=== PATIENT | female | born 1945 | race Caucasian/White ===

== ENCOUNTER 2020-10-18 07:22 | Day surgery (SDC) | payer MEDICARE, BC ==
[~2020-10-18] VITALS: Ht 154.9 cm; Wt 103.2 kg
[2020-10-18 07:44] VITALS: BP 164/99
[2020-10-18] MEDS ORDERED: ZAFI20TA14 PO (08:01)
[2020-10-18] MEDS ORDERED: ATOR20TA66 PO (08:02)
[2020-10-18] MEDS ORDERED: MIDAZolam 1 MG/ML 5ML VIAL ONE ×2 (08:03→08:32)
[2020-10-18] MEDS ORDERED: PREG200C PO (08:03)
[2020-10-18] MEDS ORDERED: fentaNYL/PF 50MCG/1 ML 2ML syringe ONE ×2 (08:03→08:32)
[2020-10-18] MEDS ORDERED: OLME5TAB3 PO (08:04)
[2020-10-18] MEDS ORDERED: OXYB10TA30 PO (08:05)
[2020-10-18] MEDS ORDERED: MONT10TA32 PO (08:05)
[2020-10-18] MEDS ORDERED: CITA20TA26 PO (08:06)
[2020-10-18] MEDS ORDERED: ALEN70TA81 PO (08:07)
[2020-10-18] MEDS ORDERED: CELE-85 PO (08:08)
[2020-10-18] MEDS ORDERED: ESOM20CA38 (08:08)
[2020-10-18] MEDS ORDERED: OMEG-86 (08:09)
[2020-10-18 09:10] VITALS: BP 147/77
[2020-10-18 09:20] VITALS: BP 151/77
[2020-10-18 09:30] VITALS: BP 154/68
[2020-10-18 09:40] VITALS: BP 156/77
== END 2020-10-18 09:50 | disposition home or self-care (01) ==
LOC: GI LAB 07:22
PROVIDERS: ATTEND Internal Medicine Gastroenterology
DX: R10.30 Lower abdominal pain, unspecified (principal); K57.30 Diverticulosis of large intestine without perforation or abscess without bleeding; I10 Essential (primary) hypertension; M19.90 Unspecified osteoarthritis, unspecified site; Z86.010 Personal history of colon polyps; Z88.1 Allergy status to other antibiotic agents; Z91.09 Other allergy status, other than to drugs and biological substances; Z79.899 Other long term (current) drug therapy
CPT/HCPCS: 45378; 99153; G0500; J2250; J3010; J7040; 99152; A4620

== ENCOUNTER 2023-04-05 05:35 | Inpatient (IN) | payer MEDICARE, BC ==
[2023-03-27 16:49] LABS: BASOPHILS # (AUTO) 0.1 X10'3 (0-0.2); BASOPHILS % (AUTO) 1.1 % (0-1); EOSINOPHILS # (AUTO) 0.2 X10'3 (0-0.9); EOSINOPHILS % (AUTO) 2.1 % (0-6); LYMPHOCYTES # (AUTO) 1.9 X10'3 (1.1-4.8); LYMPHOCYTES % (AUTO) 26.1 % (21-51); MEAN CORPUSCULAR HEMOGLOBIN 27.6 PG (27.0-31.0); MEAN CORPUSCULAR HGB CONC 32.3 g/dL (33.0-36.5); MEAN CORPUSCULAR VOLUME 85.6 FL (78-98); MEAN PLATELET VOLUME 9.6 FL (7.4-10.4); MONOCYTES # (AUTO) 0.7 X10'3 (0-0.9); MONOCYTES % (AUTO) 9.4 % (2-12); NEUTROPHILS # (AUTO) 4.5 X10'3 (1.8-7.7); NEUTROPHILS % (AUTO) 61.3 % (42-75); PRE OP HEMATOCRIT 37.6 % (35.0-45.0); PRE OP HEMOGLOBIN 12.1 g/dL (12.0-16.0); PRE OP PLATELET COUNT 169 X10'3 (140-440); PRE OP WHITE BLOOD COUNT 7.3 10'3 (4.8-10.8); RED BLOOD COUNT 4.39 X10'6 (4.20-5.60); RED CELL DISTRIBUTION WIDTH 16.2 % (11.5-14.5)
[2023-03-27 16:59] LABS: ALBUMIN 3.6 G/DL (3.4-5.0); ALBUMIN/GLOBULIN RATIO 0.9 (1.1-1.5); ALKALINE PHOSPHATASE 81 IU/L (46-116); BLOOD UREA NITROGEN 27 MG/DL (7-18); CALCIUM 9.1 MG/DL (8.5-10.1); CHLORIDE 104 MMOL/L (99-107); PRE OP ALT 20 U/L (30-65); PRE OP ANION GAP 5 (8-16); PRE OP AST 16 U/L (10-37); PRE OP BILIRUB, TOTAL 0.4 MG/DL (0.0-1.0); PRE OP GLUCOSE 80 MG/DL (70-104); PRE OP POTASSIUM 3.4 MMOL/L (3.4-5.1); PRE OP SODIUM 139 MMOL/L (135-145); TOTAL CARBON DIOXIDE 29.8 MMOL/L (24-32); TOTAL PROTEIN 7.4 G/DL (6.4-8.2); eGFR 61 ML/MIN
[2023-03-27 16:59] LABS: BILIRUBIN,URINE NEGATIVE (Neg); CLARITY,URINE CLEAR (Clear); COLOR,URINE YELLOW (Yellow); GLUCOSE, URINE NEGATIVE (Neg); KETONES,URINE NEGATIVE (Neg); LEUKOCYTE ESTERASE ,URINE NEGATIVE (Neg); NITRITES, URINE POSITIVE (Neg); OCCULT BLOOD,URINE NEGATIVE (Neg); PROTEIN,URINE NEGATIVE (Neg); UROBILINOGEN,URINE 0.2 E.U/dL (0.2-1.0)
[2023-03-27 17:09] LABS: UA COLLECTION TYPE CLN CATCH MIDSTREAM
[2023-03-27 17:13] LABS: SQUAMOUS EPITHELIAL CELL,UR FEW /LPF (FEW)
[2023-03-27 17:14] LABS: BACTERIA,URINE 1+ /HPF (Neg); WBC,URINE 0-4 /HPF (0-4)
[2023-03-27 17:15] LABS: RBC,URINE 0-2 /HPF (0-2)
[2023-03-27 17:24] LABS: HYALINE CASTS 0-3 /LPF (NEGATIVE); MUCUS STRANDS FEW /LPF (Neg)
[~2023-04-05] VITALS: Ht 154.9 cm; Wt 118.7 kg
[2023-04-05] VITALS (25 sets, daily range): BP systolic 122–148; BP diastolic 59–83; PULSE 58–89; RESP 13–18; TEMP 97.4–97.9; O2SAT 92–100
[~2023-04-05 05:35] MED LIST: ALBU0.63 NEB; APIX5TAB3 PO; ASCO-134 PO; ATOR20TA66 PO; BIOT5000 PO; BUDE10.2 INH; CELE-127 PO; CETI-90 PO; CHOL500050 PO; CITA20TA26 PO; ESOM20CA38 PO; FLUT16SP2 BOTHNARES; FURO20TA4 PO; KETOCONAZOLE CREAM TOP; MONT-40 PO; OLME5TAB29 PO; OMEG-133 PO; OXYB10TA30 PO; POTA-206 PO; PREG200C PO; PREG225C PO; PREVAGEN PO; SEMA0.258 SQ; VITA400T10 PO; ZAFI20TA PO; [UNRECOGNIZED DRUG - OTHER] PO; [UNRECOGNIZED DRUG - OTHER] PO; cefazolin 2gm/D5W 100mL 100 ML IV ONE; famotidine 20mg tablet PO ONE
[2023-04-05] MEDS ORDERED: BUPIVAcaine/PF 2.5mg/ml (0.25%) 10ml vial ONE ×2 (06:34→12:01)
[2023-04-05] MEDS ORDERED: bacitracin 15gm ointment TP ONE (06:34)
[2023-04-05] MEDS: ringers solution, lacted 1,000 ML IV SCH ×2 (06:53→15:10)
[2023-04-05] MEDS: vancomycin/NS 1 GM ADD-VANTAGE 250 ML IV SCH ×2 (06:54→21:02)
[2023-04-05] MEDS ORDERED: cloNIDine hcl/PF 100mcg/ml inj ONE (07:16)
[2023-04-05] MEDS ORDERED: fentaNYL/PF 50MCG/1 ML 2ML syringe ONE ×2 (07:22→10:28)
[2023-04-05] MEDS ORDERED: midazolam 1 mg/ML 2ml injection ONE (07:22)
[2023-04-05] MEDS ORDERED: glycopyrrolate 0.2mg/ml inj ONE (07:30)
[2023-04-05] MEDS ORDERED: neostigmine methylsulfate 1 MG/ML 10ml vial ONE (07:30)
[2023-04-05] MEDS ORDERED: sevoflurane 250ml liquid IH ONE (07:30)
[2023-04-05] MEDS ORDERED: ketamine 50mg/5ml syringe ONE (08:36)
[2023-04-05] MEDS ORDERED: morphine 4 MG/ML inj SYRINge IV PRN (09:20)
[2023-04-05] MEDS ORDERED: ringers solution, lacted 1,000 ML IV SCH (09:20)
[2023-04-05] MEDS ORDERED: HYDROmorphone/PF 0.2 MG/ML SYRINGE IV PRN ×3 (09:20→10:50)
[2023-04-05] MEDS ORDERED: morphine 2 MG/ML inj. syringe IV PRN ×3 (09:20→10:50)
[2023-04-05] MEDS ORDERED: ondansetron/PF 4mg/2ml inj IV PRN (09:20)
[2023-04-05] MEDS ORDERED: propofol inj 20 ML IV ONE (09:28)
[2023-04-05] MEDS ORDERED: rocuronium 10mg/ml inj IV ONE (09:28)
[2023-04-05] MEDS ORDERED: ePHEDrine 50MG/ML INJ. ONE (09:28)
[2023-04-05] MEDS ORDERED: dexamethasone sod phosphate 4mg/ml inj. ONE (09:28)
[2023-04-05] MEDS ORDERED: acetaminophen 1,000mg/100ml IV 100 ML IV ONE (09:28)
[2023-04-05] MEDS ORDERED: ondansetron/PF 4mg/2ml inj ONE (09:28)
[2023-04-05] MEDS ORDERED: magnesium Cl slow-release 64mg tablet PO PRN (10:50)
[2023-04-05] MEDS ORDERED: mag hydrox/Alum hydrox/simeth 30ml oral suspension PO PRN (10:50)
[2023-04-05] MEDS ORDERED: HYDROcodone/acetaminophen 5mg/325mg tablet PO PRN (10:50)
[2023-04-05] MEDS ORDERED: magnesium hydroxide 30ml (MOM) UD suspension PO PRN (10:50)
[2023-04-05] MEDS ORDERED: magnesium 2GM in 50ml NS 50 ML IV PRN (10:50)
[2023-04-05] MEDS ORDERED: acetaminophen 325mg tablet PO PRN ×2 (10:50)
[2023-04-05] MEDS: normal saline 1000ml 1,000 ML IV SCH (10:50)
[2023-04-05] MEDS ORDERED: magnesium 4gm in 100ml NS 100 ML IV PRN (10:50)
[2023-04-05] MEDS ORDERED: potassium Cl 40MEQ/1/2NS 520ml 520 ML IV PRN (10:50)
[2023-04-05] MEDS ORDERED: cefazolin 2gm/D5W 100mL 100 ML IV ONE (14:00)
[2023-04-05] MEDS ORDERED: CEFAZOLIN 2 GM injection IM ONE (14:00)
[2023-04-05] MEDS ORDERED: albuterol 2.5 MG/3 ML nebule NEB PRN (18:00)
[2023-04-05] MEDS ORDERED: ipratropium/albuterol 3ml nebule IH PRN (19:30)
[2023-04-05] MEDS: apixaban 5mg tablet PO SCH (20:00)
[2023-04-05] MEDS: K and/or MAG REPLACEMENT MC SCH (20:00)
[2023-04-05] MEDS: budesonide 0.5mg/2ml UD nebule IH SCH (20:29)
[2023-04-05] MEDS: cholecalciferol (vitamin D3) 1,000 unit (25mcg) tablet PO SCH (21:00)
[2023-04-05] MEDS: docusate sod 100mg capsule PO SCH (21:00)
[2023-04-05] MEDS: atorvastatin 20mg tablet PO SCH (21:02)
[2023-04-05] MEDS: HYDROmorphone inj. 0.5 MG/0.5 ML DISP.SYRIN IV PRN (21:15)
[2023-04-06] VITALS (11 sets, daily range): BP systolic 110–150; BP diastolic 53–57; PULSE 55–81; RESP 15–18; TEMP 97.5–98.4; O2SAT 91–99
[2023-04-06] MEDS: apixaban 5mg tablet PO SCH ×2 (06:46→20:00)
[2023-04-06 06:59] LABS: HEMOGLOBIN A1C 5.8 % (4.5-6.2)
[2023-04-06 07:21] LABS: ALANINE AMINOTRANSFERASE 6 U/L (12-78); ALBUMIN 2.8 G/DL (3.4-5.0); ALBUMIN/GLOBULIN RATIO 0.9 (1.1-1.5); ALKALINE PHOSPHATASE 64 IU/L (46-116); ANION GAP 10 (8-16); ASPARTATE AMINO TRANSFERASE 18 U/L (10-37); BILIRUBIN,TOTAL 0.3 MG/DL (0.1-1.0); BLOOD UREA NITROGEN 27 MG/DL (7-18); CALCIUM 8.5 MG/DL (8.5-10.1); CHLORIDE 106 MMOL/L (99-107); CREATININE 0.87 MG/DL (0.40-0.90); GLUCOSE 142 MG/DL (70-104); MAGNESIUM 2.4 MG/DL (1.5-2.4); POTASSIUM 4.3 MMOL/L (3.5-5.1); PRO BRAIN NATRIURETIC PEPTIDE 538 PG/ML (0-450); SODIUM 140 MMOL/L (135-145); TOTAL CARBON DIOXIDE 24.1 MMOL/L (24-32); eCRCL 42 ML/MIN; eGFR 63 ML/MIN
[2023-04-06] MEDS: normal saline 1000ml 1,000 ML IV SCH (07:40)
[2023-04-06] MEDS: HYDROmorphone inj. 0.5 MG/0.5 ML DISP.SYRIN IV PRN (07:40)
[2023-04-06] MEDS: citalopram 20mg tablet PO SCH (07:40)
[2023-04-06] MEDS: furosemide 20 MG/2 ML vial IV SCH (07:40)
[2023-04-06] MEDS: docusate sod 100mg capsule PO SCH ×2 (07:41→19:22)
[2023-04-06] MEDS: oxybutynin 5mg tablet PO SCH (07:41)
[2023-04-06] MEDS: K and/or MAG REPLACEMENT MC SCH ×2 (08:00→19:21)
[2023-04-06] MEDS: budesonide 0.5mg/2ml UD nebule IH SCH ×2 (08:35→20:39)
[2023-04-06] MEDS: HYDROcodone/acetaminophen 10/325mg tab PO PRN ×2 (09:13→15:32)
[2023-04-06 09:36] LABS: BASOPHILS % (AUTO) 0.4 % (0-1); EOSINOPHILS # (AUTO) 0.1 X10'3 (0-0.9); EOSINOPHILS % (AUTO) 0.5 % (0-6); HEMATOCRIT 32.5 % (35.0-45.0); HEMOGLOBIN 10.5 g/dl (12.0-16.0); LYMPHOCYTES # (AUTO) 1.2 X10'3 (1.1-4.8); LYMPHOCYTES % (AUTO) 10.4 % (21-51); MEAN CORPUSCULAR HEMOGLOBIN 27.7 PG (27.0-31.0); MEAN CORPUSCULAR HGB CONC 32.3 g/dL (33.0-36.5); MEAN CORPUSCULAR VOLUME 85.6 FL (78-98); MEAN PLATELET VOLUME 9.5 FL (7.4-10.4); MONOCYTES # (AUTO) 0.9 X10'3 (0-0.9); MONOCYTES % (AUTO) 8.3 % (2-12); NEUTROPHILS % (AUTO) 80.4 % (42-75); PLATELET COUNT 156 X10'3 (140-440); RED BLOOD COUNT 3.79 X10'6 (4.20-5.60); RED CELL DISTRIBUTION WIDTH 16.7 % (11.5-14.5); WHITE BLOOD COUNT 11.2 X10'3 (4.5-11.0)
[2023-04-06] MEDS: oxyCODONE/APAP 10/325mg tablet PO PRN (17:16)
[2023-04-06] MEDS: montelukast 10mg tablet PO SCH (19:39)
[2023-04-06] MEDS: cholecalciferol (vitamin D3) 1,000 unit (25mcg) tablet PO SCH (19:39)
[2023-04-06] MEDS: losartan 25mg tablet PO SCH (19:39)
[2023-04-06] MEDS: pregabalin 75mg capsule PO SCH (19:40)
[2023-04-06] MEDS: atorvastatin 20mg tablet PO SCH (19:40)
[2023-04-06] MEDS: cetirizine 10mg tablet PO SCH (19:40)
[2023-04-06] MEDS: pregabalin 25mg capsule PO SCH (19:40)
[2023-04-06] MEDS: albuterol 2.5 MG/3 ML nebule NEB SCH (20:39)
[2023-04-07] VITALS (10 sets, daily range): BP systolic 110–136; BP diastolic 54–63; PULSE 57–80; RESP 16–18; TEMP 96.7–98.4; O2SAT 93–97
[2023-04-07] MEDS: celeCOXIB 100mg capsule PO SCH ×3 (00:13→19:34)
[2023-04-07] MEDS: oxyCODONE/APAP 10/325mg tablet PO PRN ×4 (02:22→19:35)
[2023-04-07 06:22] LABS: MAGNESIUM 1.9 MG/DL (1.5-2.4); POTASSIUM 3.7 MMOL/L (3.5-5.1)
[2023-04-07] MEDS: furosemide 20MG tablet PO SCH (07:41)
[2023-04-07] MEDS: pantoprazole 40mg Tablet.DR PO SCH (07:41)
[2023-04-07] MEDS: furosemide 20 MG/2 ML vial IV SCH ×2 (07:42→07:49)
[2023-04-07] MEDS: pregabalin 75mg capsule PO SCH ×2 (07:42→20:19)
[2023-04-07] MEDS: apixaban 5mg tablet PO SCH ×2 (07:43→19:35)
[2023-04-07] MEDS: pregabalin 25mg capsule PO SCH ×2 (07:43→20:14)
[2023-04-07] MEDS: oxybutynin 5mg tablet PO SCH (07:43)
[2023-04-07] MEDS: citalopram 20mg tablet PO SCH (07:44)
[2023-04-07] MEDS: docusate sod 100mg capsule PO SCH ×2 (07:44→19:35)
[2023-04-07] MEDS: K and/or MAG REPLACEMENT MC SCH ×2 (08:00→19:04)
[2023-04-07] MEDS: albuterol 2.5 MG/3 ML nebule NEB SCH ×2 (08:17→21:05)
[2023-04-07] MEDS: budesonide 0.5mg/2ml UD nebule IH SCH ×2 (08:17→21:05)
[2023-04-07] MEDS: normal saline 1000ml 1,000 ML IV SCH (10:50)
[2023-04-07] MEDS: montelukast 10mg tablet PO SCH (20:14)
[2023-04-07] MEDS: cholecalciferol (vitamin D3) 1,000 unit (25mcg) tablet PO SCH (20:14)
[2023-04-07] MEDS: cetirizine 10mg tablet PO SCH (20:14)
[2023-04-07] MEDS: atorvastatin 20mg tablet PO SCH (20:14)
[2023-04-07] MEDS: losartan 25mg tablet PO SCH (20:14)
[2023-04-08] MEDS: oxyCODONE/APAP 10/325mg tablet PO PRN ×3 (00:25→11:22)
[2023-04-08 06:20] VITALS: BP 114/46; PULSE 55; RESP 18; TEMP 97.9; O2SAT 100
[2023-04-08 07:29] LABS: POTASSIUM 4.1 MMOL/L (3.5-5.1)
[2023-04-08] MEDS: oxybutynin 5mg tablet PO SCH (07:35)
[2023-04-08] MEDS: pregabalin 25mg capsule PO SCH (07:35)
[2023-04-08] MEDS: celeCOXIB 100mg capsule PO SCH (07:35)
[2023-04-08] MEDS: apixaban 5mg tablet PO SCH (07:36)
[2023-04-08] MEDS: docusate sod 100mg capsule PO SCH (07:36)
[2023-04-08] MEDS: pregabalin 75mg capsule PO SCH (07:36)
[2023-04-08] MEDS: citalopram 20mg tablet PO SCH (07:36)
[2023-04-08] MEDS: pantoprazole 40mg Tablet.DR PO SCH (07:37)
[2023-04-08] MEDS: furosemide 20MG tablet PO SCH (07:37)
[2023-04-08] MEDS: K and/or MAG REPLACEMENT MC SCH (08:00)
[2023-04-08] MEDS: budesonide 0.5mg/2ml UD nebule IH SCH (09:26)
[2023-04-08] MEDS: albuterol 2.5 MG/3 ML nebule NEB SCH (09:26)
[2023-04-08 09:28] VITALS: PULSE 79; RESP 16; O2SAT 91
[2023-04-08 09:39] VITALS: PULSE 82; RESP 16
[2023-04-08 10:36] VITALS: RESP 18; O2SAT 97
[2023-04-08 11:42] VITALS: BP 99/51; PULSE 71; RESP 17; TEMP 98.1; O2SAT 94
[2023-04-08 12:25] VITALS: RESP 17
== END 2023-04-08 16:19 | DRG 493 ==
LOC: PAS 05:35 → PAS IN 11:04 → ORTHO 4S 12:55
PROVIDERS: ADMIT Podiatrist Foot & Ankle Surgery; ATTEND Podiatrist Foot & Ankle Surgery
PROC: 0SPG0JZ Removal of Synthetic Substitute from Left Ankle Joint, Open Approach (ICD-10-PCS; 2023-04-05)
PROC: 3E0T3BZ Introduction of Anesthetic Agent into Peripheral Nerves and Plexi, Percutaneous Approach (ICD-10-PCS; 2023-04-05)
PROC: BW1C1ZZ Fluoroscopy of Lower Extremity using Low Osmolar Contrast (ICD-10-PCS; 2023-04-05)
PROC: 0QBH0ZZ Excision of Left Tibia, Open Approach (ICD-10-PCS; 2023-04-05)
PROC: 0SG Lower Joints, Fusion (ICD-10-PCS; principal; 2023-04-05 07:30)
DX: M21.072 Valgus deformity, not elsewhere classified, left ankle (principal); M96.0 Pseudarthrosis after fusion or arthrodesis; Z68.42 Body mass index [BMI] 45.0-49.9, adult; M21.172 Varus deformity, not elsewhere classified, left ankle; M21.40 Flat foot [pes planus] (acquired), unspecified foot; E66.01 Morbid (severe) obesity due to excess calories; I50.9 Heart failure, unspecified; I48.91 Unspecified atrial fibrillation; M25.572 Pain in left ankle and joints of left foot; Z79.899 Other long term (current) drug therapy; Q66.52 Congenital pes planus, left foot
CPT/HCPCS: 36415; 73600; 76000; 80053; 81001; 82948; 83036; 83735; 83880; 84132; 85025; 87077; 87081; 87088; 87186; 94640; 94760; 97110; 97161; 97530; 97535; A4615; A4618; A6223; A6253; A6402; A6449; A7000; C1713; G0378; J0131; J0690; J0735; J1100; J1170; J1940; J2250; J2270; J2405; J2704; J2710; J3010; J3370; J3490; J7030; J7120

== ENCOUNTER 2024-06-15 14:32 | Outpatient (CLI) | payer MEDICARE, BC ==
[~2024-06-15 14:32] MED LIST changes: -ESOM20CA38 PO; +ESOM20CA50 PO; -ZAFI20TA PO; -cefazolin 2gm/D5W 100mL 100 ML IV ONE; -famotidine 20mg tablet PO ONE
== END 2024-06-15 23:52 | disposition home or self-care (01) ==
LOC: RAD 14:32
PROVIDERS: ATTEND Podiatrist Foot & Ankle Surgery
DX: M19.072 Primary osteoarthritis, left ankle and foot (principal); M25.472 Effusion, left ankle; M21.42 Flat foot [pes planus] (acquired), left foot; M79.672 Pain in left foot
CPT/HCPCS: 73700